=== PATIENT | female | born 1945 | race Caucasian/White ===

== ENCOUNTER → 2020-07-09 11:32 | Outpatient (CLI) | payer MEDICARE, SELFPAY ==
--- NOTE | 2020-07-09 11:48 | CA_ITS ---
APPROVED REPORT EXAM: Comprehensive 2D, Doppler, and color-flow Echocardiogram Perioperative Assistant: Berenice Min RT(R) Ht: 5 ft 2 in Wt: 183lbs BSA: 1.84 BP: 123/70 mmHg Indications: HTN,ABN EKG 2D Dimensions LVOT 1.91 cm (M/F) 1.5-2.5 M-Mode Dimensions RVDd 2.09 cm (0.9-2.6) LA Diam 3.51 cm (1.9-4.0) LVDd 4.46 cm (3.5-5.7) Ao Diam 3.07 cm (2.0-3.7) LVDs 3.61 cm (3.5-5.7) IVSd 1.24 cm (0.6-1.1) PWd 1.00 cm (0.6-1.1) EF (Teich) 39.40% FS 19.10% EDV (Teich) 90.50 mL ESV (Teich) 54.80 mL LV Diastology E Decel Time 187.00 (160-240 msec) E/A Ratio 0.7 MED E' 4.80 (< 7 cm/sec) E'/MED E' Ratio 14.38 (>14) LAT E' 4.90 (<10 cm/sec) E/LAT E' Ratio 14.08 (>14) Mitral Valve MV E Max Tushar. 69.00 (40-130 cm/s) MV A Velocity 95.00 (40-130 cm/s) E/A Ratio 0.72 MV Decel. Time 187.00 (160-240 ms) MV PHT 55.00 ms Tricuspid Valve TR P. Velocity 274.00 cm/s RAP Estimate 10.00 mmHg RVSP 40.00 mmHg Left Ventricle Technically very difficult study because of the patient factors and poor acoustic windows. Left atrium is mildly enlarged, left ventricle is normal size, mild concentric left ventricular hypertrophy, visually estimated ejection fraction 55% with no regional wall motion abnormality. Grade 1 diastolic dysfunction seen with tissue Doppler evidence of raise left atrial pressure. Right Ventricle Right atrium and right ventricular qualitatively mildly enlarged with normal contractility. Aortic Valve Aortic valve is minimally thickened and fibrosed, there is no aortic stenosis or aortic insufficiency. Mitral Valve Mitral valve leaflets are minimally thickened, there is mild mitral regurgitation. Tricuspid Valve Tricuspid valve is grossly normal, there is mild tricuspid regurgitation, tricuspid regurgitation jet velocity is inadequate for calculation of the right ventricular systolic pressure. Pulmonic Valve Pulmonic valve is poorly visualized. Great Vessels Aortic root is normal size. Pericardium No significant pericardial effusion noted. Conclusion 1. Biatrial enlargement, normal left ventricular size, mild concentric left ventricular hypertrophy, visually estimated ejection fraction 55% with no regional wall motion abnormality, grade 1 diastolic dysfunction seen with tissue Doppler evidence of raise left atrial pressure. 2. Mildly enlarged right ventricle with normal contractility. 3. Mild mitral and tricuspid regurgitation. 4. No significant pericardial effusion noted. Electronically signed by : Nelson Souza, 07/10/2020 06:13:56
[2020-07-09 12:15] LABS: Basophils % 0.8 % (0.1-2.0); Eosinophils # 0.1 K/mm3 (0.0-0.4); Hematocrit 41.3 % (37.0-47.0); Hemoglobin 13.2 g/dL (12.2-16.2); Lymphocytes # 1.5 K/mm3 (0.7-4.5); Lymphocytes % 32.7 % (10-50); Mean Corpuscular Hemoglobin 30.4 pg (27.0-31.2); Mean Platelet Volume 8.3 fl (7.4-10.4); Monocytes # 0.4 K/mm3 (0.1-1.0); Monocytes % 8.2 % (1.7-9.3); Neutrophils # 2.6 K/mm3 (1.8-7.8); Neutrophils % 55.3 % (37.0-80.0); Platelet Count 279 K/mm3 (142-424); Red Blood Count 4.35 M/mm3 (4.20-5.40); Red Cell Distribution Width 14.7 % (11.5-17.5); White Blood Count 4.6 K/mm3 (4.8-10.8)
[2020-07-09 13:03] LABS: Chloride 103 mmol/L (98-107)
[2020-07-09 13:04] LABS: Potassium 4.1 mmoL/L (3.5-5.1); Sodium 139 mmol/L (136-145)
[2020-07-09 13:06] LABS: Alanine Aminotransferase 43 U/L (12-78); Anion Gap 12.1 mEq/L (5-15); Aspartate Amino Transferase 43 U/L (14-36); Bilirubin,Unconjugated 0.2 mg/dL (0.0-1.1); Blood Urea Nitrogen 15 mg/dl (7-17); Carbon Dioxide 28 mmol/L (22.0-30.0); Estimated Glomerular Filt Rate 82 ml/min (>60); GFR (African American) 99 ML/MIN (>60)
[2020-07-09 13:07] LABS: Albumin Level 4.4 g/dl (3.5-5.0); Alkaline Phosphatase 58 U/L (38-126); Bilirubin,Direct 0.2 mg/dl (0.0-0.4); Bilirubin,Indirect 0.2 mg/dL (0.0-0.9); Bilirubin,Total 0.4 mg/dl (0.2-1.3); Calcium 9.5 mg/dl (8.4-10.2); Chol/HDL Ratio 2.6 (1-3.5); Cholesterol 151 mg/dl (140-200); Glucose 107 mg/dl (74-100); HDL Cholesterol 57 mg/dl (40-60); Triglycerides 145 mg/dl (30-150); VLDL Cholesterol 29 mg/dL (0-40)
[2020-07-09 13:18] LABS: Direct LDL Cholesterol 63.21 mg/dL (100-129)
[2020-07-09 13:24] LABS: Free T4 (Free Thyroxine) 1.21 ng/dl (0.78-2.19)
[2020-07-09 13:38] LABS: Thyroid Stimulating Hormone 0.11 uIU/mL (0.465-4.68)
== END ==
PROVIDERS: Visit Provider Urology
DX: E78.5 Hyperlipidemia, unspecified (principal); I10 Essential (primary) hypertension; R23.2 Flushing; R94.31 Abnormal electrocardiogram [ECG] [EKG]
CPT/HCPCS: 36415; 80048; 80061; 80076; 84439; 84443; 85025; 93306

== ENCOUNTER → 2021-02-06 12:47 | Outpatient (CLI) | payer MEDICARE, SELFPAY ==
[2021-02-06 14:29] LABS: Free T4 (Free Thyroxine) 1.13 ng/dl (0.78-2.19)
[2021-02-06 14:45] LABS: Thyroid Stimulating Hormone < 0.02 uIU/mL (0.465-4.68)
== END ==
PROVIDERS: Visit Provider Internal Medicine
DX: E78.5 Hyperlipidemia, unspecified (principal); I10 Essential (primary) hypertension; R23.2 Flushing
CPT/HCPCS: 84439; 84443

== ENCOUNTER → 2021-03-27 12:41 | Outpatient (CLI) | payer MEDICARE, SELFPAY ==
[2021-03-27 15:23] LABS: Free T4 (Free Thyroxine) 1.34 ng/dl (0.78-2.19)
[2021-03-27 17:08] LABS: Thyroid Stimulating Hormone < 0.02 uIU/mL (0.465-4.68)
== END ==
PROVIDERS: Visit Provider Internal Medicine
DX: E78.5 Hyperlipidemia, unspecified (principal); Z79.899 Other long term (current) drug therapy
CPT/HCPCS: 36415; 84439; 84443